=== PATIENT | male | born 1990 | race Caucasian/White ===

== ENCOUNTER 2021-06-21 05:32 | Emergency (ER) | payer OTHER ==
[2021-06-21] MEDS ORDERED: NORCO 5-325 TA1 EACH PO (09:31)
== END 2021-06-21 09:58 | disposition home or self-care (01) ==
LOC: FER 05:32
DX: S62.232A Other displaced fracture of base of first metacarpal bone, left hand, initial encounter for closed fracture (principal); W19.XXXA Unspecified fall, initial encounter
CPT/HCPCS: 73140